=== PATIENT | female | born 1995 | race Hispanic/Latino ===

== ENCOUNTER 2016-07-23 10:06 | Day surgery (SDC) | payer MEDICAID ==
[2016-07-21 12:10] VITALS: BMI 18.8
--- NOTE | 2016-07-23 10:39 | CP.SDSHP ---
Same Day Surgery H & P - History Proposed Procedure: left hallux removal of accessory bone Pre-Op Diagnosis: left hallux painful accessory bone - Allergies Allergies: Allergies ethinyl estradiol [From Seasonale contraceptive] Allergy (Verified 07/23/16 10: 33) SNEEZING levonorgestrel [From Seasonale contraceptive] Allergy (Verified 07/23/16 10:34) SNEEZING mold Allergy (Verified 07/23/16 10:34) SNEEZING MOSQUITO Allergy (Uncoded 07/23/16 10:35) SNEEZING - Physical Exam Vital Signs: Vital Signs 07/23/16 10:27 Pulse Rate 68 - {Optional Preform as Required} Integument: WNL - Impression Impression: Pt was seen and examined in [facility]. Pt NPO status was confirmed. All Pre-op testing and clearance was in the chart. Pt has exhausted all conservative treatment at this time and is opting for surgical intervention. Pt was explained procedure and post-operative course. All pt's questions were answered to satisfaction. No guarantees were made. Pt understands all risks, benefits and complications of procedure. Pt will follow-up with Dr Perez in clinic Short Stay Discharge - Short Stay Discharge Admitting Diagnosis/Reason for Visit: Q74.2 Disposition: HOME/ ROUTINE Referrals: Clay Banda MD [Primary Care Provider] - Follow-up: f/u next thu. 07/30/[address] Perez in clinic Instructions: RICE Therapy (GEN), Cephalexin (By mouth) Additional Instructions (Diet, Activity): keep dressing clean,dry,intact Progress Note/Discharge Note with Instructions: --Patient in good/stable condition for discharge home. Pt to resume medications per medical reconciliation. Resume regular diet. Please keep dressing clean, dry, & intact to surgical site, use plastic bag over bandage for showering, wear post op shoe at all times when ambulating, call clinic if you see signs of infection (redness, swelling, malodor), please make an appointment to see in clinic within 1 week for post-op check. If you need to speak to a nurse in our clinic please call [phone] and someone will answer the phone Thursday from 9AM 5PM. Please leave a message at all other times. If you need to fax our clinic a document, our fax number is: [phone]. For all after-hour concerns: The on-call pager number is . The pager is held by a podiatry resident 08/09. You can use this to contact the resident physicians if your have any serious concerns either before or after your surgery. Examples of serious after-hour concerns are foul smelling odor with purulent drainage, completely saturated with blood dressings , tight cast that you cannot fit two fingers into, and individual ascending red streaks up the leg. Please keep in mind that prescriptions cannot be signed nor called into the pharmacy by residents of the [facility]. As the patient, it is your job to schedule a post-operative appointment at our clinic. The appointment scheduling phone number is: [phone]. For more information about our program please go to: [email or web address]
--- NOTE | 2016-07-23 10:41 | CP.PCM.PN ---
Subjective - Date & Time of Evaluation Date of Evaluation: 07/23/16 Time of Evaluation: 10:39 - Subjective Subjective: 21 y/o female with pmhx of scoliosis, seen in same day surgery for preoperative evaluation going to OR today for left hallux removal of accessory bone by Dr. Perez. Patient states that she has been having worsening pain for 2 months while ambulating. She states that she has been trying to avoid putting pressure on that area and its causing her to have ankle pain as well. Patient states that she has not eaten or drank anything past 6pm last night. SHe denies any acute events overnight. SHe denies n/v/f/c/d/sob. Objective - Vital Signs/Intake and Output Vital Signs (last 24 hours): Temp Pulse Resp BP Pulse Ox 68 07/23/16 10:27 - Constitutional Appears: Well, Non-toxic, No Acute Distress - Extremities Exam Additional comments: Vasc: DP/PT 2/4 b/l, TG wnl, CFT < 3 sec to all digits neuro: grossly intact derm: hyperkeratotic lesion noted to left plantar hallux, no open lesions, no interdigital maceration, nno acute clinical signs of infection ortho: pain on palpation to left plantar hallux - Neurological Exam Neurological Exam: Alert, Awake, Oriented x3 - Psychiatric Exam Psychiatric exam: Normal Affect, Normal Mood Assessment and Plan - Assessment and Plan (Free Text) Assessment: 21 y/o female seen at bedside in [facility] going to OR for left hallux removal of accessory bone Plan: Pt was seen and examined in [facility] Pt NPO status was confirmed All Pre-op testing and clearance was in the chart Pt has exhausted all conservative treatment at this time and is opting for surgical intervention Pt was explained procedure and post-operative course All pt's questions were answered to satisfaction No guarantees were made Pt understands all risks, benefits and complications of procedure Pt will follow-up with Dr. Perez in [facility] podiatry clinic
[2016-07-23] MEDS ORDERED: Lidocaine 1% Inj (20ml) IJ ONE (10:44)
[2016-07-23] MEDS ORDERED: ceFAZolin 1 GM in Sodium Chloride 0.9% 100 ML IVPB ONE (10:44)
[2016-07-23] MEDS ORDERED: Bupivacaine 0.5% Inj(30mL) IJ ONE (10:44)
[2016-07-23] MEDS ORDERED: Sodium Chloride 0.9% 500 ML IV SCH (10:45)
[2016-07-23] MEDS ORDERED: Bupivacaine 0.5% Inj(30mL) ONE (11:58)
[2016-07-23] MEDS ORDERED: Lidocaine 1% Inj (20ml) ONE (11:58)
[2016-07-23] MEDS ORDERED: Ketamine 50 mg/ml Inj (10 ml) ONE (12:10)
[2016-07-23] MEDS ORDERED: Lactated Ringer's 1,000 ML IV ONE (12:22)
[2016-07-23] MEDS ORDERED: Bacitracin Ointment 30 GM TUBE ONE (12:38)
--- NOTE | 2016-07-23 12:57 | PCM.SURG1 ---
Surgeon's Initial Post Op Note - Surgeon's Notes Surgeon: Dr. Perez Design Leader: Dr. Neelam Ellis Type of Anesthesia: IV Sedation, Local Anesthesia Administered By: Dr. Zurita Pre-Operative Diagnosis: Left hallux painful plantar wart Operative Findings: N/A Post-Operative Diagnosis: same Operation Performed: Left Hallux excision of painful plantar wart Specimen/Specimens Removed: Wart soft tissue from plantar aspect of Left plantar hallux Estimated Blood Loss: EBL {In ML}: 1 Blood Products Given: N/A Drains Used: No Drains Post-Op Condition: Good Date of Surgery/Procedure: 07/23/16 Time of Surgery/Procedure: 12:10
[2016-07-23] MEDS ORDERED: Lactated Ringer's 1,000 ML IV SCH (12:58)
[2016-07-23] MEDS ORDERED: HYDROmorphone 0.5 mg/0.5 ml ISec IVP PRN (12:58)
[2016-07-23] MEDS ORDERED: Oxycodone/Acetaminophen 5/325 mg Tab PO PRN ×2 (13:00)
[2016-07-23 13:15] VITALS: O2SAT 100
[2016-07-23 14:33] VITALS: RESP 18
[2016-07-23 16:21] VITALS: BP 106/63; PULSE 78; TEMP 98.2
--- NOTE | 2016-07-25 02:25 | OP ---
PROCEDURE DATE: 07/23/2016 SURGEON: Dr. Perez. ARTIST'S MODEL: Dr. Caitlyn Ellis. POWER SUPERINTENDENT: Dr. Zurita. ANESTHESIA: IV sedation and local. PREOPERATIVE DIAGNOSIS: Left hallux painful plantar wart. POSTOPERATIVE DIAGNOSIS: Left hallux painful plantar wart. PROCEDURE PERFORMED: Excisional removal of painful soft tissue lesion to left plantar hallux. INDICATIONS: The patient is a 21-year-old female with the above diagnosis. The patient has exhauste d conservative treatment at this time and now requests surgical intervention. The patient signed the consent after careful explanation of risks, benefits, complications, and alternatives for surgical p rocedure. No guarantees were given nor implied. One gram of Ancef IV was given to patient half hour prior to the procedure. N.p.o. status was confirmed prior to taking patient to the OR. PREPARATION: The patient was brought to the operating room and placed on the operating room table in supine position. A well-padded pneumatic ankle tourniquet was placed to the patient's left ankle in a supramalleolar position. After induction of IV sedation, the patient received a total of 13 mL of 1:1 mixture of 0.5% Marcaine plain and 1% lidocaine plain in local block fashion to the left foot. Once local anesthesia was achieved, the left foot was then prepped and draped in usual sterile manner . Esmarch was utilized to exsanguinate the patient's left foot. Pneumatic ankle tourniquet was then inflated to 250 mmHg and the procedure began. DESCRIPTION OF PROCEDURE: Attention was directed to the plantar aspect of the left hallux IPJ where there is a verrucal lesion measuring approximately less than 1 cm in diameter. At this point, on the margin of the lesion plantarly, using a Brown-Adson and a curette, the lesion was lifted and deeper incision was made. Once the lesion was completely removed, the wound bed was cleaned and irrigated w ith sterile normal saline. The area was then dressed with bacitracin, Telfa, and DSD. The attending was present during the entire case. POSTOPERATIVE CONDITION: The patient tolerated the anesthesia and procedure well and was escorted to the recovery room with vital signs stable and neurovascular status intact to the left foot. This pa tient will follow up with Dr. Perez. [facility] David J Chris ROB cc: [id number] TT: 07/25/2016 02:25:10 [facility] # [id number]
== END 2016-07-23 16:20 | disposition home or self-care (01) ==
LOC: H.OPSURG 10:06
PROVIDERS: ATTEND Podiatrist
DX: Q74.2 Other congenital malformations of lower limb(s), including pelvic girdle (principal)